=== PATIENT | male | born 1975 | race Two or more races ===

== ENCOUNTER 2021-02-15 13:49 | Emergency (ER) | payer MEDICAID ==
[~2021-02-15] VITALS: Ht 170.2 cm; Wt 70.3 kg
--- NOTE | 2021-02-15 14:00 | NUR ---
ER BED 3, C/O RUQ ABDOMINAL PAIN, AWAITING MD CAMARA
[2021-02-15 14:30] VITALS: BP 128/78
--- NOTE | 2021-02-15 14:30 | NUR ---
UNABLE TO GIVE URINE AT THIS TIME
[2021-02-15] MEDS ORDERED: KETOROLAC TROMETHAMINE 15 MG/ML VIAL ONE (14:41)
[2021-02-15] MEDS ORDERED: ONDANSETRON HCL/PF 4 MG/2 ML VIAL ONE (14:42)
[2021-02-15] MEDS: IV NS 0.9% 1,000 ML BAG IV ONE (14:50)
[2021-02-15] MEDS: KETOROLAC TROMETHAMINE INJ 30 MG/ML VIAL IV ONE (14:51)
[2021-02-15] MEDS: ONDANSETRON HCL/PF 4 MG/2 ML VIAL IVP ONE (14:52)
[2021-02-15 15:07] LABS: BASOPHILS % (AUTO) 0.5 % (0.0-2.0); CALCIUM, SERUM 8.5 mg/dL (8.5-10.1); EOSINOPHILS % (AUTO) 6.2 % (0.0-6.0); HEMATOCRIT 43 % (39-51); HEMOGLOBIN 14.5 g/dL (13.5-17.5); LYMPHOCYTES # (AUTO) 1.9 K/uL (0.8-4.8); LYMPHOCYTES % (AUTO) 31.2 % (20.0-44.0); MEAN CORPUSCULAR HGB CONC 34 g/dl (31.0-36.0); MEAN CORPUSCULAR VOLUME 89 fL (80-96); MONOCYTES # (AUTO) 0.5 K/uL (0.1-1.30); MONOCYTES % (AUTO) 7.8 % (2.0-12.0); NEUTROPHILS # (AUTO) 3.3 K/uL (1.8-8.9); NEUTROPHILS % (AUTO) 54.3 % (43.0-81.0); PLATELET COUNT (AUTO) 258 K/uL (150-450); POTASSIUM 4.2 mmol/L (3.5-5.1)
[2021-02-15 15:14] LABS: ALBUMIN 4.1 g/dL (3.4-5.0); BILIRUBIN,DIRECT 0.2 mg/dL (0.0-0.2); BILIRUBIN,TOTAL 0.9 mg/dL (0.2-1.0); TOTAL PROTEIN, SERUM 7.4 g/dL (6.4-8.2)
[2021-02-15] MEDS ORDERED: LIDOCAINE VISCOUS 2% UD 15 ML UDC ONE (15:47)
[2021-02-15] MEDS ORDERED: MAG HYDROX/AL HYDROX/SIMETH 30 ML UDC ONE (15:47)
[2021-02-15] MEDS: MAG HYDROX/AL HYDROX/SIMETH 30 ML UDC PO ONE (15:49)
[2021-02-15] MEDS: LIDOCAINE VISCOUS 2% UD 15 ML UDC MM ONE (15:49)
[2021-02-15 16:12] LABS: BILIRUBIN,URINE NEGATIVE (NEGATIVE); COLOR,URINE YELLOW (YELLOW); LEUKOCYTE ESTERASE ,URINE NEGATIVE (NEGATIVE); NITRITE, URINE NEGATIVE (NEGATIVE); PH,URINE 5.5 (5.0-8.0); PROTEIN,URINE NEGATIVE (NEGATIVE); UGLUCOSE NEGATIVE (NEGATIVE); UROBILINOGEN,URINE 0.2 EU/dL (0.2)
[2021-02-15] MEDS ORDERED: MAG355OR18 PO (16:14)
[2021-02-15] MEDS ORDERED: FAMO-131 PO (16:14)
== END 2021-02-15 17:09 | disposition home or self-care (01) ==
LOC: ER 13:54
DX: R10.11 Right upper quadrant pain (principal)
CPT/HCPCS: 36415; 76705; 80048; 80076; 81003; 83690; 85025; 96361; 96374; 96375; 99284; J1885; J2405; J7030

== ENCOUNTER 2022-03-17 09:42 | Emergency (ER) | payer MEDICAID ==
[~2022-03-17] VITALS: Ht 170.2 cm; Wt 68.0 kg
[2022-03-17 09:42] VITALS: BP 118/73
[~2022-03-17 09:42] MED LIST: FAMO-131 PO; MAG355OR18 PO
--- NOTE | 2022-03-17 10:21 | NUR ---
DR DAY W/ PT FOR EVAL
[2022-03-17 10:47] LABS: BASOPHILS % (AUTO) 0.5 % (0.0-2.0); EOSINOPHILS % (AUTO) 4.7 % (0.0-6.0); HEMATOCRIT 42 % (39-51); HEMOGLOBIN 14.5 g/dL (13.5-17.5); LYMPHOCYTES # (AUTO) 1.8 K/uL (0.8-4.8); LYMPHOCYTES % (AUTO) 23.3 % (20.0-44.0); MEAN CORPUSCULAR HGB CONC 34 g/dl (31.0-36.0); MEAN CORPUSCULAR VOLUME 88 fL (80-96); MONOCYTES # (AUTO) 0.7 K/uL (0.1-1.30); MONOCYTES % (AUTO) 8.6 % (2.0-12.0); NEUTROPHILS # (AUTO) 4.9 K/uL (1.8-8.9); NEUTROPHILS % (AUTO) 62.9 % (43.0-81.0); PLATELET COUNT (AUTO) 253 K/uL (150-450); RED BLOOD CELL COUNT(AUTO) 4.79 MIL/uL (4.5-6.0); WHITE BLOOD COUNT (AUTO) 7.9 K/uL (4.3-11.0)
[2022-03-17 11:10] LABS: CALCIUM, SERUM 8.9 mg/dL (8.5-10.1); POTASSIUM 4.1 mmol/L (3.5-5.1)
[2022-03-17] MEDS ORDERED: CLIN300C12 PO (12:01)
--- NOTE | 2022-03-17 12:08 | NUR ---
Patient discharged to home in stable condition. Written and verbal after care instructions given. Patient verbalizes understanding of instruction.
== END 2022-03-17 12:09 | disposition home or self-care (01) ==
LOC: ER 09:55
DX: R60.0 Localized edema (principal); Z79.899 Other long term (current) drug therapy
CPT/HCPCS: 36415; 80048-TC; 85025-TC

== ENCOUNTER 2022-08-20 20:19 | Emergency (ER) | payer MEDICAID ==
[~2022-08-20] VITALS: Ht 170.2 cm; Wt 71.2 kg
[~2022-08-20 20:19] MED LIST changes: +CLIN300C12 PO
--- NOTE | 2022-08-20 20:30 | NUR ---
BIBS. FROM HOME BILAT SHOULDER & POST NECK PAIN X 10 DAYS. PT A/OX4. TOLERATING R/A WELL WITH NO RESP DISTRESS. SAFETY MEASURES IN PLACE.
--- NOTE | 2022-08-20 20:50 | NUR ---
DR. LAW MARRUFO AT PT'S BEDSIDE FOR EVAL
[2022-08-20] MEDS ORDERED: CYCLOBENZAPRINE 10 MG TABLET ONE (20:56)
[2022-08-20] MEDS ORDERED: KETOROLAC TROMETHAMINE INJ 30 MG/ML VIAL ONE (20:56)
[2022-08-20] MEDS ORDERED: KETO10TA2 PO (20:56)
[2022-08-20] MEDS ORDERED: CYCL5TAB PO (20:56)
[2022-08-20] MEDS ORDERED: KETOROLAC TROMETHAMINE INJ 30 MG/ML VIAL IM ONE (21:00)
[2022-08-20] MEDS ORDERED: CYCLOBENZAPRINE 10 MG TABLET PO ONE (21:00)
--- NOTE | 2022-08-20 21:17 | NUR ---
Patient discharged to home in stable condition. Rx written and verbal after care instructions given. Patient verbalizes understanding of instruction. Pt ambulatory with a steady gait.
[2022-08-20 21:19] VITALS: BP 120/80
== END 2022-08-20 21:19 | disposition home or self-care (01) ==
LOC: ER 20:21
DX: M54.12 Radiculopathy, cervical region (principal); Z79.899 Other long term (current) drug therapy
CPT/HCPCS: 99283; 96372; J1885

== ENCOUNTER 2022-10-13 08:04 | Emergency (ER) | payer MEDICAID ==
[~2022-10-13] VITALS: Ht 170.2 cm; Wt 68.5 kg
[~2022-10-13 08:04] MED LIST changes: +CYCL5TAB PO; +KETO10TA2 PO
--- NOTE | 2022-10-13 08:14 | NUR ---
PT WALKED INTO ER C/O LOWER LIP AND RIGHT HAND SWELLING SINCE 5AM TODAY. PT DENIES SOB. NO HIVES NOTED. PT IS BREATHING EVEN AND UNLABORED. AMBULATED TO BED WITH STEADY GAIT. CONNECTED TO MONITOR. VSS. AWAITING MD ORDERS. SAFETY PRECAUTIONS IN PLACE.
--- NOTE | 2022-10-13 08:28 | NUR ---
DR. SRIVASTAVA AT BEDSIDE
--- NOTE | 2022-10-13 08:34 | NUR ---
ESTABLISHED IV LINE AT RIGHT AC 20 G .
--- NOTE | 2022-10-13 08:35 | NUR ---
BLOOD SAMPLE OBTAINED
[2022-10-13] MEDS ORDERED: FAMOTIDINE/PF INJ 20 MG/2 ML VIAL IV ONE ×2 (08:43→09:00)
[2022-10-13] MEDS ORDERED: DEXAMETHASONE SOD PHOSPHATE 10 MG/ML VIAL ONE (08:43)
[2022-10-13] MEDS ORDERED: diphenhydrAMINE HCL 50 MG/ML VIAL ONE (08:43)
[2022-10-13] MEDS ORDERED: EPINEPHRINE (1:1000) 1 MG/ML AMPUL ONE (08:43)
[2022-10-13 08:55] LABS: BASOPHILS % (AUTO) 0.1 % (0.0-2.0); EOSINOPHILS % (AUTO) 2.8 % (0.0-6.0); HEMATOCRIT 43 % (39-51); HEMOGLOBIN 14.5 g/dL (13.5-17.5); LYMPHOCYTES # (AUTO) 2.2 K/uL (0.8-4.8); LYMPHOCYTES % (AUTO) 25.3 % (20.0-44.0); MEAN CORPUSCULAR HGB CONC 34 g/dl (31.0-36.0); MEAN CORPUSCULAR VOLUME 87 fL (80-96); MONOCYTES # (AUTO) 0.9 K/uL (0.1-1.30); MONOCYTES % (AUTO) 10.3 % (2.0-12.0); NEUTROPHILS # (AUTO) 5.3 K/uL (1.8-8.9); NEUTROPHILS % (AUTO) 61.5 % (43.0-81.0); PLATELET COUNT (AUTO) 289 K/uL (150-450); RED BLOOD CELL COUNT(AUTO) 4.96 MIL/uL (4.5-6.0); WHITE BLOOD COUNT (AUTO) 8.6 K/uL (4.3-11.0)
[2022-10-13] MEDS ORDERED: EPINEPHRINE (1:1000) MDV 30 MG/30ML VIAL SUBCUT ONE (09:00)
[2022-10-13] MEDS ORDERED: DEXAMETHASONE SOD PHOSPHATE 10 MG/ML VIAL IV ONE (09:00)
[2022-10-13] MEDS ORDERED: diphenhydrAMINE HCL 50 MG/ML VIAL IV ONE (09:00)
[2022-10-13 09:14] LABS: CALCIUM, SERUM 9.1 mg/dL (8.5-10.1); CREATININE 0.9 mg/dL (0.6-1.3)
[2022-10-13] MEDS ORDERED: FAMO-131 PO (10:54)
[2022-10-13] MEDS ORDERED: DIPH25CA83 PO (10:54)
[2022-10-13] MEDS ORDERED: PRED50TA PO (10:54)
--- NOTE | 2022-10-13 11:04 | NUR ---
Patient discharged to home in stable condition. Written and verbal after care instructions given. Patient verbalizes understanding of instruction.
--- NOTE | 2022-10-13 11:04 | NUR ---
IV removed. Catheter intact and site benign. Pressure and 4x4 applied to site. No bleeding noted.
[2022-10-13 11:05] VITALS: BP 133/71
== END 2022-10-13 11:05 | disposition home or self-care (01) ==
LOC: ER 08:08
DX: T78.3XXA Angioneurotic edema, initial encounter (principal); Z79.899 Other long term (current) drug therapy
CPT/HCPCS: 99284; 96374; 71045; 96375; 96372; 85025; 80048; 36415; J1100; J1200; J0171 ×2; J3490